=== PATIENT | female | born 1945 | race Caucasian/White ===

== ENCOUNTER → 2017-03-24 | Day surgery (SDC) | payer MEDICARE ==
[2017-03-19 10:42] VITALS: BMI 27.3
[~2017-03-24] MED LIST: LACTATED RINGERS 1,000 ML IV ONE; LACTATED RINGERS 1,000 ML IV SCH; LIDOCAINE 1% 20 ML VIAL (10MG/ML) FOR IV START INTRADERMA PRN; PROPOFOL 10 MG/ML 20 ML VIAL IV ONE
[2017-03-24 07:17] VITALS: RESP 18; TEMP 97
--- NOTE | 2017-03-24 07:51 | P.GSHP ---
History of Present Illness H&P Date: 03/24/17 Chief Complaint: Screening colonoscopy This a 71-year-old female referred from Dr. Marcie rodríguez. Patient presents today for screening colonoscopy. She's had appears colonoscopy approximately 8 years ago. Patient history of diverticulosis. - Constitutional Constitutional: Reports as per HPI Past Medical History Past Medical History: Cancer, Hyperlipidemia, Osteoarthritis (OA) Additional Past Medical History / Comment(s): basal cell cancer removed from nose History of Any Multi-Drug Resistant Organisms: None Reported Past Surgical History: Section, Hysterectomy, Tonsillectomy Additional Past Surgical History / Comment(s): cyst removal rt ear x2, basal cell cancer removed from nose Past Anesthesia/Blood Transfusion Reactions: Previous Problems w/ Anesthesia, Motion Sickness, Postoperative Nausea & Vomiting (PONV) Additional Past Anesthesia/Blood Transfusion Reaction / Comment(s): slow to wake up from anesthesia Smoking Status: Never smoker Past Alcohol Use History: Rare Past Drug Use History: None Reported - Past Family History Father Family Medical History: Cancer Additional Family Medical History / Comment(s): melanoma Mother Family Medical History: CVA/TIA, Diabetes Mellitus Medications and Allergies Home Medications Medication Instructions Recorded Confirmed Type Acetaminophen [Tylenol Arthritis] 2 tab PO SUTUTHSA 03/19/17 03/19/17 History Biotin 5,000 mcg PO DAILY 03/19/17 03/19/17 History Celecoxib [CeleBREX] 200 mg PO MOWEFR 03/19/17 03/19/17 History Cholecalciferol [Vitamin D3] 5,000 unit PO DAILY 03/19/17 03/19/17 History Loratadine [Claritin] 10 mg PO DAILY 03/19/17 03/19/17 History Simvastatin [Zocor] 20 mg PO TUTHSA 03/19/17 03/19/17 History Allergies Allergy/AdvReac Type Severity Reaction Status Date / Time cephalexin [From Keflex] Allergy Rash/Hives Verified 03/19/17 10:13 Surgical - Exam Vital Signs Temp Pulse Resp BP Pulse Ox 97.0 F L 94 18 138/71 98 03/24/17 07:16 03/24/17 07:16 03/24/17 07:16 03/24/17 07:16 03/24/17 07:16 - General well developed, no distress - Eyes PERRL - ENT normal pinna - Neck no masses - Respiratory normal expansion - Cardiovascular Rhythm: regular - Abdomen Abdomen: soft, non tender Assessment and Plan Plan: We'll perform screening colonoscopy
--- NOTE | 2017-03-24 08:14 | P.OP ---
Date of Procedure: 03/24/17 Preoperative Diagnosis: Screening colonoscopy Postoperative Diagnosis: Diverticulosis Procedure(s) Performed: Colonoscopy Anesthesia: MAC Surgeon: Bari Moe Pathology: none sent Condition: stable Disposition: PACU Description of Procedure: The patient's placed on the endoscopy table in the lateral position. She received IV sedation. Digital rectal exam was performed which revealed a few external hemorrhoids. The flexible colonoscope was then placed patient anus and passed throughout colon. The scope could not be passed beyond the descending colon secondary to tortuosity the valve. There was significant diverticular changes. The bowel appeared to be scarred position in the would not insufflate well. This point the scope was withdrawn. There is extensive diverticular changes of the descending and sigmoid colon. Scope was then brought back the rectum this appeared normal. Patient sent to recovery. She was scheduled for a barium enema.
[2017-03-24 08:37] VITALS: BP 118/75; PULSE 84
--- NOTE | 2017-03-24 11:20 | FL ---
EXAMINATION TYPE: FL barium enema DATE OF EXAM: 03/24/2017 10:24 AM COMPARISON: NONE HISTORY: Failed colonoscopy, diverticulosis TECHNIQUE: A double contrast barium enema study is attempted. A total of 3 minutes of fluoroscopic t sven was utilized for procedure. FINDINGS: Personnel Training Officer view of the abdomen shows overall non-obstructive bowel gas pattern. Gas prominent s mall and large bowel loops are present. Patient had difficulty holding contrast but contrast was successfully filled to the cecum. Exam is alvarez boptimal as patient has diffuse colonic diverticulosis and redundancy of the colon particularly the s igmoid colon. These findings make evaluation for polyps markedly suboptimal. No evidence of any obstr ucting or constricting lesion throughout the colon. Diffuse colonic diverticulosis is present most pr onounced at level of the sigmoid colon. No convincing enema evidence for acute diverticulitis. Also p atient did not tolerate air distention with pain on attempts. Terminal ileum was refluxed and appeared within normal limits. Appendix is not seen with certainty. IMPRESSION: Suboptimal study with diffuse colonic diverticulosis. No obstructing or constricting mas s or neoplasm is identified. Successful visualization to the cecum.
== END | disposition home or self-care (01) ==
LOC: ORWHC2ENDO 06:44
PROVIDERS: ATTEND Surgery
DX: Z12.11 Encounter for screening for malignant neoplasm of colon (principal); Q43.8 Other specified congenital malformations of intestine; K57.30 Diverticulosis of large intestine without perforation or abscess without bleeding; R19.4 Change in bowel habit; E78.5 Hyperlipidemia, unspecified; M19.90 Unspecified osteoarthritis, unspecified site; Z85.828 Personal history of other malignant neoplasm of skin; Z79.899 Other long term (current) drug therapy; Z88.1 Allergy status to other antibiotic agents
CPT/HCPCS: 74270; J2704; G0121

== ENCOUNTER → 2017-07-24 | Outpatient (CLI) | payer MEDICARE ==
[2017-07-24 11:25] LABS: Blood Urea Nitrogen 18 mg/dL (7-17); Non-African American GFR(MDRD) >60 (>60 ml/min/1.73 sqM)
--- NOTE | 2017-07-24 12:52 | CT ---
EXAMINATION TYPE: CT urogram wo/w con DATE OF EXAM: 07/24/2017 COMPARISON: NONE HISTORY: Microscopic hematuria CT DLP: 2552 mGycm CONTRAST: Performed and with IV Contrast, patient injected with 100 mL of Omnipaque 300. CT Urography was performed with unenhanced followed by enhanced images of the kidneys, ureters and ur inary bladder. Delayed images were obtained. 3d reconstruction was performed at a separate work sta tion. FINDINGS: KIDNEYS/BLADDER: There is soft tissue identified measuring approximately 1.6 x 1.6 cm within the intr arenal portion of the left renal pelvis with partial extension into an infundibulum or 2 within the m id pole of the left kidney. No additional filling defects identified within the ureters or urinary bl adder. No renal cortical mass is identified. No hydronephrosis or nephrolithiasis. LUNG BASES-: No visible nodule. No infiltrate. LIVER/GB: No calcified gallstones. Several small hepatic cysts. Biliary tree is of normal caliber. PANCREAS: No inflammation. No distinct mass. SPLEEN: No splenic enlargement. No lesion seen. ADRENALS: No nodule. No thickening. BOWEL: Normal appendix. Normal bowel caliber. Wall thickening in the region of the duodenal bulb. Co rrelate for duodenitis among other processes. Small sliding-type hiatal hernia noted. GENITAL ORGANS: Hysterectomy changes. No evidence for adnexal mass. LYMPH NODES: No greater than 1cm abdominal or pelvic lymph nodes are appreciated. AORTA: No significant abnormality. OSSEOUS STRUCTURES: Severe degenerative changes of the lumbar spine. OTHER: No significant additional abnormality is seen. IMPRESSION: 1. Soft tissue mass within the intrarenal portion of the left renal pelvis suspicious for neoplasm. D irect visualization is advised. 2. Wall thickening involving the duodenal bulb. Correlate for ulcer disease or duodenitis. 3. Simple hepatic cysts.
== END | disposition home or self-care (01) ==
LOC: RADCTMAIN 10:43
PROVIDERS: ATTEND Urology
DX: N28.9 Disorder of kidney and ureter, unspecified (principal); R31.29 Other microscopic hematuria; Z88.1 Allergy status to other antibiotic agents
CPT/HCPCS: 74178; 74400; 82565; 84520

== ENCOUNTER 2017-08-20 10:24 | Inpatient (IN) | payer MEDICARE ==
[2017-08-14 16:08] VITALS: BMI 26.4
[~2017-08-20 10:24] MED LIST changes: +DEXAMETHASONE SOD PHOSPHATE 10 MG/ML 1 ML VIAL IV ONE; +HYDROmorphone 1 MG/ML 1 ML SYRINGE IVP PRN; -LACTATED RINGERS 1,000 ML IV ONE; -LACTATED RINGERS 1,000 ML IV SCH; +LEVOFLOXACIN 500MG-D5W PMX 500 MG in DEXTROSE/WATER 1 100ML.BAG IVPB ONE; -LIDOCAINE 1% 20 ML VIAL (10MG/ML) FOR IV START INTRADERMA PRN; +ONDANSETRON 4 MG/2 ML VIAL IVP ONE; -PROPOFOL 10 MG/ML 20 ML VIAL IV ONE
[2017-08-20] MEDS: LACTATED RINGERS 1,000 ML IV SCH (11:25)
[2017-08-20] MEDS ORDERED: LIDOCAINE 1% 20 ML VIAL (10MG/ML) FOR IV START INTRADERMA ONE (11:26)
[2017-08-20] MEDS ORDERED: MIDAZOLAM 2 MG/2 ML VIAL IV ONE (12:04)
[2017-08-20] MEDS ORDERED: fentaNYL (PF) 50 MCG/ML 2 ML AMP IV ONE (12:04)
[2017-08-20] MEDS ORDERED: HEPARIN SODIUM,PORCINE 5,000 UNIT/ML 1 ML VIAL SQ ONE (12:30)
[2017-08-20] MEDS ORDERED: NALOXONE 0.4 MG/ML 1 ML VIAL IV PRN (12:39)
[2017-08-20] MEDS ORDERED: NEOSTIGMINE 1 MG/ML 10 ML VIAL ONE (15:03)
[2017-08-20] MEDS ORDERED: SUCCINYLCHOLINE CHLORIDE 100 MG/5 ML SYR IV ONE (15:03)
[2017-08-20] MEDS ORDERED: fentaNYL (PF) 50 MCG/ML 2 ML AMP ONE (15:03)
[2017-08-20] MEDS ORDERED: PROPOFOL 10 MG/ML 20 ML VIAL IV ONE (15:03)
[2017-08-20] MEDS ORDERED: ePHEDrine 50 MG/ML 1 ML AMP ONE (15:03)
[2017-08-20] MEDS ORDERED: ROCURONIUM BROMIDE 10 MG/ML 10 ML VIAL IV ONE (15:03)
[2017-08-20] MEDS ORDERED: GLYCOPYRROLATE 0.2 MG/ML 2 ML VIAL ONE (15:03)
[2017-08-20] MEDS ORDERED: MIDAZOLAM 2 MG/2 ML VIAL ONE (15:03)
[2017-08-20] MEDS ORDERED: LIDOCAINE 1% INJ 10MG/ML (20 ML MDV) ONE (15:03)
[2017-08-20] MEDS ORDERED: LACTATED RINGERS 1,000 ML IV ONE ×2 (15:20→17:12)
--- NOTE | 2017-08-20 18:25 | P.OP ---
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 Left ureteral orifice.) Condition: stable Disposition: PACU Indications for Procedure: She is a 71 year old female who underwent a CT urogram for evaluation of hematuria, revealing a left renal pelvic filling defect suspicious for urothelial carcinoma. She underwent left ureteronephroscopy with biopsy, confirming the presence of urothelial carcinoma. She will thus undergo a left nephroureterectomy. The procedure was reviewed in detail with the patient and her daughter. The anticipated perioperative course and potential risks were discussed. These include anesthesia, bleeding, infection, post-op ileus, urinary leak, and incisional hernia. Operative Findings: No evidence of extrarenal disease. Description of Procedure: The patient was taken to the operating room and given general anesthesia. A Michele catheter was placed sterilely. After draining urine from the bladder, 50 mL of sterile water was instilled into the bladder. The catheter was then clamped. The patient was placed in a modified right lateral decubitus position , with great attention paid to positioning including the use of an axillary roll. The abdomen and flank were prepped and draped sterilely. The scalpel was used to make a left flank incision, extending anteriorly from the tip of the 12th rib. The Bovie electrocautery was used to incise the subcutaneous fat , and each individual muscle layer of the anterior abdominal wall. The flank was entered posteriorly, and the peritoneum was swept away from the underside of the transversalis fascia. This allowed the peritoneum not to be injured. Gerota's fascia was incised longitudinally. The kidney was exposed. Using a combination of sharp and blunt dissection, the kidney was isolated. Attention was then paid to the hilum. 2 renal veins were identified and isolated. Next, 2 branches of the left renal artery were identified. These were ligated using 2 -0 silk ties. Each of the veins were then ligated twice proximally and once distally prior to dividing them. The arteries that were then likewise ligated twice proximally and once distally prior to dividing them. The only remaining attachment at this time was the ureter. It was dissected away from adjacent tissues, and this dissection was continued inferiorly beyond the iliac vessels. A warm moist gauze was placed over the flank incision, and the table was rotated. The scalpel was used to make a midline infraumbilical skin incision. The Bovie electrocautery was used to incise the subcutaneous fat and linea alba in the midline. Significant scarring was encountered, as expected. The space of Retzius was entered inferiorly, just above the pubis. The bladder was swept away from the underside of the pubis. Significant perivesical adhesions were noted on the left side. Ultimately, it was decided to make a midline cystotomy incision. The left ureteral orifice was identified. After being removed to determine the exact location of the left bladder wall, it was possible to divide some of the left perivesical adhesions to mobilize the bladder. The Bovie electrocautery was used to circumscribe the left ureteral orifice. The intramural portion of the ureter was then dissected away from the bladder wall. The stent was cut at the end of the ureter, and the ureter was then ligated using a silk suture to prevent spillage. Once the ureter had been detached from the bladder wall, the remaining dissection of the ureter was performed to allow the specimens were removed through the flank incision intact. The left ureteral hiatus was closed in 2 layers. 2-0 Vicryl suture was used to close the muscle in a running fashion, and 3-0 Vicryl suture was used to close the mucosa in a running fashion. Likewise, the anterior cystotomy incision was closed in an identical fashion. A Gilmar-Gracia drain was left within the left perivesical space. This was brought out through a separate stab incision to the left of the midline incision, and was sutured to the skin using nylon suture. The linea alba was closed using double-stranded 0 PDS suture in a running fashion. The skin was closed using nikki. Attention was then paid to the flank incision. Each individual muscle layer was closed using 0 Vicryl suture in a running fashion. As in the suprapubic incision, hemostasis within the subcutaneous tissues was excellent. The skin was closed using nikki. Sterile gauze dressings were applied over both incisions. All sponge and needle counts were correct. The Michele catheter remained connected to gravity drainage. The patient tolerated the procedure well and was taken to the recovery room in stable condition.
[2017-08-20] MEDS: BUPIVACAINE (PF) 0.5% 31.3 ML, HYDROMORPHONE (PF) 5 MG in SODIUM CHLORIDE 0.9% 218 ML EPIDURAL PRN (18:51)
[2017-08-20] MEDS: HEPARIN SODIUM,PORCINE 5,000 UNIT/ML 1 ML VIAL SQ SCH (21:23)
[2017-08-20] MEDS: ATORVASTATIN 10 MG TAB PO SCH (21:23)
[2017-08-20] MEDS: ONDANSETRON 4 MG/2 ML VIAL IVP PRN (21:25)
[2017-08-20] MEDS: SERTRALINE 25 MG TAB PO SCH (21:25)
[2017-08-21] MEDS: DEXTROSE 5%-0.45% NACL 1,000 ML IV SCH ×3 (01:36→19:36)
[2017-08-21] MEDS: diphenhydrAMINE 50 MG/ML 1 ML VIAL IVP PRN ×3 (04:33→20:43)
[2017-08-21] MEDS: LACTATED RINGERS 1,000 ML IV SCH (05:15)
[2017-08-21] MEDS: HEPARIN SODIUM,PORCINE 5,000 UNIT/ML 1 ML VIAL SQ SCH ×2 (08:38→20:28)
[2017-08-21] MEDS: LORATADINE 10 MG TAB PO SCH (08:39)
[2017-08-21] MEDS: ONDANSETRON 4 MG/2 ML VIAL IVP PRN (08:46)
--- NOTE | 2017-08-21 09:23 | P.PN ---
Progress Note - Text Postoperative day 1 status post left ureteronephrectomy, under general endotracheal anesthesia and epidural catheter placed for postoperative analgesia. Patient doing well epidural site clean, vital signs stable, visual analog scale 0-1/10 , patient had no motor deficit, he shouldn't currently on combination infusion of Dilaudid/bupivacaine at 8 mL per hour, he had no side effect. Assessment and plan= postoperative day 1 and equal with pain control will continue the same management
[2017-08-21 11:52] LABS: Calcium 8.5 mg/dL (8.4-10.2); Potassium 4.2 mmol/L (3.5-5.1)
[2017-08-21] MEDS ORDERED: SODIUM CHLORIDE 0.9% 500 ML IV ONE (12:29)
[2017-08-21] MEDS: BUPIVACAINE (PF) 0.5% 31.3 ML, HYDROMORPHONE (PF) 5 MG in SODIUM CHLORIDE 0.9% 218 ML EPIDURAL PRN (14:43)
[2017-08-21] MEDS ORDERED: DEXTROSE 5%-0.45% NACL 1,000 ML IV SCH (16:00)
--- NOTE | 2017-08-21 18:22 | P.PN ---
Subjective Principal diagnosis: POD #1, s/p left nephroureterectomy Patient comfortable and without complaints. Objective - Vital Signs Vital signs: Vital Signs Temp 98.3 F 08/21/17 15:23 Pulse 81 08/21/17 15:23 Resp 15 08/21/17 07:00 BP 102/62 08/21/17 15:23 Pulse Ox 96 08/21/17 15:23 Intake & Output 08/20/17 08/21/17 08/21/17 18:59 06:59 18:59 Intake Total 2473 1000 1300.4 Output Total 450 605 310 Balance 2023 395 990.4 Intake: IV 2473 Intake, IV Titration 1000 1300.4 Amount Bupivacaine (Pf) 0.5% 31. 1.4 3 ml Hydromorphone (Pf) 5 mg In Sodium Chloride 0. 9% 218 ml @ Per Protocol EPIDURAL .Q0M PRN Rx#: [id number] Dextrose 5%-0.45% NaCl 1, 1000 800 000 ml @ 100 mls/hr IV . Q10H LYNDON Rx#:[id number] Sodium Chloride 0.9% 500 499 ml @ 499 mls/hr IV .Q1H1M ONE Rx#:[id number] Output: Drainage 130 Lower Abdomen 130 Urine 150 475 210 Emesis 100 Estimated Blood Loss 300 Other: Voiding Method Indwelling Catheter Indwelling Catheter - Constitutional General appearance: Present: no acute distress - Gastrointestinal Gastrointestinal Comment(s): Soft, non-distended, dressings dry and intact. Michele draining blood-tinged urine. 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 Begin CLD. Ambulate.
[2017-08-21] MEDS: SERTRALINE 25 MG TAB PO SCH (20:28)
[2017-08-22] MEDS: DEXTROSE 5%-0.45% NACL 1,000 ML IV SCH ×5 (03:10→17:59)
[2017-08-22] MEDS: LACTATED RINGERS 1,000 ML IV SCH (03:11)
[2017-08-22] MEDS: diphenhydrAMINE 50 MG/ML 1 ML VIAL IVP PRN ×2 (05:52→15:27)
[2017-08-22] MEDS: LORATADINE 10 MG TAB PO SCH (08:57)
[2017-08-22] MEDS: HEPARIN SODIUM,PORCINE 5,000 UNIT/ML 1 ML VIAL SQ SCH ×2 (08:57→21:05)
[2017-08-22] MEDS ORDERED: DEXTROSE 5%-0.45% NACL 1,000 ML IV SCH (09:40)
--- NOTE | 2017-08-22 09:50 | P.PN ---
Progress Note - Text The patient is afebrile and comfortable. She is tolerating liquids and says she would like a regular diet. She denies shortness of breath or cough. She has ambulated some. Her urine output is clear to slightly blood-tinged but is free of clots. Drainage from her Gilmar-Gracia drainage has been minimal. Physical exam-abdomen is soft and incisions are dry. Impression-good recovery following left nephroureterectomy. The patient's diet will be increased and her epidural catheter will be removed later today. If she is comfortable she will most likely be discharged tomorrow with a Michele catheter. I remove her Gilmar-Gracia drain prior to discharge.
--- NOTE | 2017-08-22 10:26 | P.PN ---
Progress Note - Text 0576 Anesthesia POD 2. Status Post left nephrectomy under general endotracheal anesthesia with an epidrual catheter placed at T12 for post surgical pain releif. VAS (2, 4) with Bupivicaine 0.0625 % and Dilaudid 20 mcg / cc running at 6 cc / hr. Lower extremity strength (4/4). No sedation. Site looks OK. Patient has been somewhat nauseated, and if the epidural catheter is not to be removed today we will consider decreasing the amount of narcotic in the infusate.
[2017-08-22] MEDS: Acetaminophen-Codeine 300-30mg TAB PO PRN ×2 (14:04→20:10)
[2017-08-22] MEDS: SERTRALINE 25 MG TAB PO SCH (21:06)
[2017-08-22] MEDS: ATORVASTATIN 10 MG TAB PO SCH (21:06)
[2017-08-23] MEDS: DEXTROSE 5%-0.45% NACL 1,000 ML IV SCH ×3 (01:57→02:52)
[2017-08-23] MEDS: Acetaminophen-Codeine 300-30mg TAB PO PRN ×2 (02:37→08:54)
[2017-08-23] MEDS: diphenhydrAMINE 25 MG CAP PO PRN ×2 (02:38→08:54)
[2017-08-23] MEDS: LACTATED RINGERS 1,000 ML IV SCH (02:52)
[2017-08-23] MEDS: LORATADINE 10 MG TAB PO SCH (08:07)
[2017-08-23] MEDS: HEPARIN SODIUM,PORCINE 5,000 UNIT/ML 1 ML VIAL SQ SCH (08:07)
[2017-08-23 08:15] VITALS: BP 122/73; PULSE 90; RESP 14; TEMP 98.6
--- NOTE | 2017-08-23 09:34 | P.PN ---
Progress Note - Text The patient is afebrile and comfortable on oral analgesics. She is tolerating regular diet and ambulatory. She denies any shortness of breath and had a bowel movement earlier today. Her urine is blood-tinged but free of clots. Physical exam: Abdomen-soft. Incisions are dry. Minimal drainage from Gilmar- Gracia drain. Impression: Good recovery following left nephroureterectomy. Plan: The patient's Gilmar-Gracia drain will be removed and she will be discharged this morning. She will see Dr. Brewer in 1 week at which time her Michele catheter and skin nikki will be removed. She was given a prescription for Tylenol with Codeine for pain control.
--- NOTE | 2017-10-30 12:53 | P.DS ---
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 She remained afebrile with stable vital signs throughout the postoperative course. There were no perioperative complications. She was started on clear liquid diet on the first postoperative day. This was gradually advanced. The epidural catheter was removed on the second postoperative day. At the time of discharge, she was tolerating diet and ambulating. Her pain was controlled with oral analgesics. The MAVIS drain was removed prior to discharge. She was discharged home with the Michele catheter. Procedures: Left nephroureterectomy 08/20/2017. Patient Condition at Discharge: Good Plan - Discharge Summary New Discharge Prescriptions: New Acetaminophen-Codeine 300-30mg [Tylenol w/codeine #3] 1 tab PO Q6H PRN #15 tablet PRN Reason: Pain No Action Simvastatin [Zocor] 20 mg PO TUTHSA Loratadine [Claritin] 10 mg PO DAILY Cholecalciferol [Vitamin D3] 5,000 unit PO DAILY Celecoxib [CeleBREX] 200 mg PO MOWEFR Calcium Polycarbophil [Fibercon] 625 mg PO BID Estradiol Cream [Estrace Cream 0.01%] 1 gm VAGINAL SUFR L.acidoph,Paracasei, B.lactis [Probiotic] 1 cap PO DAILY Sertraline [Zoloft] 25 mg PO HS Discharge Medication List Celecoxib [CeleBREX] 200 mg PO MOWEFR 03/19/17 [History] Cholecalciferol [Vitamin D3] 5,000 unit PO DAILY 03/19/17 [History] Loratadine [Claritin] 10 mg PO DAILY 03/19/17 [History] Simvastatin [Zocor] 20 mg PO TUTHSA 03/19/17 [History] Calcium Polycarbophil [Fibercon] 625 mg PO BID 08/14/17 [History] Estradiol Cream [Estrace Cream 0.01%] 1 gm VAGINAL SUFR 08/14/17 [History] L.acidoph,Paracasei, B.lactis [Probiotic] 1 cap PO DAILY 08/14/17 [History] Sertraline [Zoloft] 25 mg PO HS 08/14/17 [History] Acetaminophen-Codeine 300-30mg [Tylenol w/codeine #3] 1 tab PO Q6H PRN #15 tablet 08/23/17 [Rx] Follow up Appointment(s)/Referral(s): [facility], [NON-STAFF] - Patient Instructions/Handouts: Acetaminophen/Codeine (By mouth), Michele Catheter Placement and Care (DC), Laparoscopic Radical Nephrectomy (DC), Urinary Leg Bag (GEN) Activity/Diet/Wound Care/Special Instructions: MAY SHOWER, MAY KEEP INCISION OPEN TO AIR, NO LIFTING, PUSHING OR PULLING Discharge Disposition: HOME WITH HOME HEALTH SERVICES
== END 2017-08-23 11:19 | disposition home health service (06) | DRG 658 ==
LOC: 2ORMAIN 10:24 → 3SUR 18:14
PROVIDERS: ADMIT Urology; ATTEND Urology
PROC: 0TT70ZZ Resection of Left Ureter, Open Approach (ICD-10-PCS; 2017-08-20)
PROC: 0TT10ZZ Resection of Left Kidney, Open Approach (ICD-10-PCS; principal; 2017-08-20 12:45)
DX: C65.2 Malignant neoplasm of left renal pelvis (principal); Z85.828 Personal history of other malignant neoplasm of skin; Z79.899 Other long term (current) drug therapy; Z87.442 Personal history of urinary calculi; Z87.440 Personal history of urinary (tract) infections; Z90.710 Acquired absence of both cervix and uterus; Z88.1 Allergy status to other antibiotic agents
CPT/HCPCS: 36415; 80048; 85025; 86850; 86900; 86901; 88305; 88307; 93005

== ENCOUNTER → 2017-09-12 | Outpatient (CLI) | payer MEDICARE ==
--- NOTE | 2017-09-13 19:44 | PE ---
EXAMINATION TYPE: PET CT fusion skull to thigh DATE OF EXAM: 09/12/2017 CLINICAL HISTORY: 72-year-old female carcinoma of the renal pelvis, initial staging. Patient with victoria hinton on 08/20/2017. TECHNIQUE: Following the intravenous administration of 14.47 mCi of F-18 FDG, whole body images are performed from the skull base to the midthigh. Images are reviewed on the computer in the coronal, axial, and sagittal planes. Reconstructed rotating images are created on independent workstation and reviewed on the computer. A localization and attenuation correction CT is performed in conjunction with the PET scan. Glucose level: 81 mg/dL COMPARISON: CT urogram 07/24/2017 FINDINGS: PET: Physiologic FDG uptake within the neck and chest. There is variable moderate to intense small and large bowel uptake throughout the abdomen and pelvis, max SUV 6.3. Much of this increased uptake is in segmental distributions. Scar along the midline anterior abdominal wall. There is a focal soft tissue thickening along the mid line abdominal wall fascia directly underlying the umbilicus in the region of scar that shows focal m oderate FDG uptake on axial image 176, max SUV 4.3. Additional focal borderline moderate FDG uptake along the patient's scar at the anterior midline pelv is, max SUV 3.8, axial image 187. There is some soft tissue stranding in the subcutaneous fat along the left flank with corresponding m ild FDG uptake, max SUV 3.1, which also involves the flank abdominal wall musculature. No discrete ma ss is identified. Patient is status post left nephrectomy. Surgical clip noted in the renal fossa. No abnormal hypermet abolism here. ATTENUATION CORRECTION CT: Paranasal sinuses and mastoid air cells are well pneumatized. No cervical lymphadenopathy. Heart is normal size without pericardial effusion. Coronary vessel calcifications are present in the remarkable for coronary artery disease. Aorta is normal caliber with a mild atherosclerotic arch calc ifications and conventional arch vessel branching anatomy. No thoracic lymphadenopathy. Strandy atele ctasis or scarring at the inferior lingula. No consolidation or pleural effusion. Small hiatal hernia. No dilated small bowel, free fluid, or free air. Inferior splenule is noted. No nobstructive 4 mm renal calculus. Extrarenal pelvis on the right. No mesenteric or retroperitoneal ly mphadenopathy identified. Mild circumferential bladder wall thickening. Sigmoid diverticulosis. Multiple pelvic phleboliths. No abnormal fluid collection in the pelvis. Uterus surgically absent. Suspect visualization of the righ t ovary. Left ovary not clearly delineated from bowel loops. Bones: Degenerative changes of the hips and lower lumbar spine. No osseous destructive process. IMPRESSION: 1. Status post left nephrectomy. No abnormal hypermetabolism within the nephrectomy bed. 2. Anterior midline scar. The scar shows areas of thickening and moderate hypermetabolism particularl y along the abdominal wall fascia deep to the umbilicus and also at the level of the anterior pelvis. Findings likely reactive, postsurgical change. Follow-up recommended to exclude the possibility of h ypermetabolic seeding. 3. Mild uptake along the patient's left flank soft tissues is most compatible with reactive postsurgi chandrika change. 4. Variable moderate to intense bowel uptake throughout the abdomen and pelvis. Peritoneal seeding an d normal variation bowel uptake are both in the differential. The latter is favored at this time. Cli nical correlation and follow-up is recommended. 5. Incidental: Small hiatal hernia, sigmoid diverticulosis, and mild circumferential bladder wall thi ckening that could represent chronic wall hypertrophy or cystitis.
== END | disposition home or self-care (01) ==
LOC: RADPETMAIN 13:50
PROVIDERS: ATTEND Internal Medicine Hematology & Oncology
DX: C65.9 Malignant neoplasm of unspecified renal pelvis (principal); Z90.5 Acquired absence of kidney
CPT/HCPCS: 78815; A9552